=== PATIENT | female | born 1975 | race African-American/Black ===

== ENCOUNTER 2016-07-22 09:00 | Emergency (ER) | payer SELFPAY ==
[2016-07-22] MEDS ORDERED: KETOROLAC TROMETH 30 MG/ML VIAL IM ONE (09:07)
--- NOTE | 2016-07-22 09:10 | EDPRACDOC ---
- General Information Stated Complaint: ABD/BACK PAIN, BITE Time Seen by Provider: 07/22/16 09:03 Information Source: Patient Mode Of Arrival: Car Home Medications: Home Medications Cephalexin Monohydrate [Keflex] 500 mg PO Q6H #20 cap 05/17/16 Promethazine Dextromethorphan [Phenergan DM] 5 ml PO Q6 PRN #120 ml 05/17/16 Hydrocodone/Acetaminophen [Lortab 5-325 mg Tablet] 1 each PO Q4H PRN #15 tablet 07/22/16 Ketorolac Tromethamine [Toradol] 10 mg PO Q6H PRN #20 tab 07/22/16 Prednisone [Deltasone, Orasone] 1 tabs PO BID #18 tab 07/22/16 Allergies/Adverse Reactions: Allergies Allergy/AdvReac Type Severity Reaction Status Date / Time No Known Allergies Allergy Verified 07/22/16 09:17 - History of Present Illness Onset: FEW DAYS HPI: PT SAID THAT SHE HAS PAIN IN HER BACK AND GOING DOWN HER RIGHT LEG INTO HER RIGHT KNEE. THE PT SAID THAT SHE ALSO HAS RUQ PAIN AND SUPRAPUBIC PAIN. Pain Location: Reports: Bilateral, Lumbar Pain Radiates To: Reports: Thigh Pain Caused By: Reports: Spontaneous Circumstances: Reports: Other Relevant History: Reports: None Currently ?: No Pain Severity: Reports: Mild Pain Quality: Reports: Burning Worsened By: Reports: Movement Associated Signs and Symptoms: Reports: Abdominal Pain ED Past Medical History - History Reviewed No Past Medical History: Yes Patient has no past medical history - Patient Medical History Psychological History: Denies: Depression Surgical History: Reports: Other (BTL) - Social Medical History Smoking Status: Never smoker ETOH: None Substance Abuse: None Lives In: Home EDM Review of Systems - Review of Systems ROS Negative Except as Marked: Yes All systems reviewed and were negative except as marked Gastrointestinal: Pain Musculoskeletal: Back - Physical Exam Constitutional: Alert (Awake), No apparent distress Oriented to: Time, Person, Place Last recorded Vital Signs: Oxygen Pulse Oxygen Saturation O2 Device Oxygen Flow Rate Fraction of Inspired Oxygen ( FIO2) - HEENT Head: Normal ( normocephalic) Eye Exam: Normal (PERRL, EOMI, Sclera white) Oropharynx: Normal (Pharynx:Moist without exudate,Gums-no swelling) ENT EAC: Normal TMJ: Normal Nose: No Symptoms Reported (septum midline) Neck: Normal (FROM, trachea at midline) - Respiratory/Cardiovascular Respiratory: Normal - CTA (BBS clear to auscultation without adventitious sounds ) Cardiovascular: Normal (RRR without murmur, gallop or rub) - GI Auscultation: Normal (NABS) Palpation: Normal (Soft,No rebound or guarding, non distended) Tenderness: Mild, RUQ, Suprapubic Hernandez's Sign: Negative - Musculoskeletal Back: Normal (Non-Tender) Extremities: Normal (Normal tone, Pulses 2+ No cyanosis or edema, FROM) - Integumentary Skin: Normal, Warm, Dry Lymphatics: Normal (no adenopathy) - Neurologic Memory Impaired: Normal Motor Function: Normal (Normal tone, Pulses 2+ No cyanosis or edema, FROM) Cranial Nerve: Normal (CN II-X11 intact sensation, strength 5/5) Cerebellar: Normal Mood Description: Normal Thought: Coherent Perception: Normal - Results 07/22/16 09:20 07/22/16 09:20 Decision Time to Discharge: 09:54 - Departure Yes I personally saw and evaluated the patient. Disposition: Home Condition: Fair Final Diagnosis: Lumbar radiculopathy, Hyperglycemia Instructions: Lumbar Radiculopathy (ED) Education/Counseling Given To: Patient Education/Counseling Given Regarding: Diagnosis, Treatment, Follow Up Referrals: None,No Provider [Primary Care Provider] - One Week Geoffrey Nolen MD [Staff Physician] - One Week Prescriptions: Hydrocodone/Acetaminophen [Lortab 5-325 mg Tablet] 1 each PO Q4H PRN #15 tablet PRN Reason: Pain Ketorolac Tromethamine [Toradol] 10 mg PO Q6H PRN #20 tab PRN Reason: Pain Prednisone [Deltasone, Orasone] 1 tabs PO BID #18 tab Additional Instructions: recheck bs with pcp in 1 week
[2016-07-22 09:11] VITALS: TEMP 98.4; BMI 39.8
[2016-07-22 09:40] LABS: AUTOMATED BASOPHIL 0.5 % (0-2); AUTOMATED EOSINOPHIL 2.1 % (0-5); AUTOMATED LYMPH 31.7 % (17-44); AUTOMATED MONOCYTE 7.4 % (3-10); AUTOMATED NEUTROPHIL 58.3 % (45-76); MPV 8.9 fL (7.4-10.4)
[2016-07-22 09:45] LABS: RBC/URINE 0-2 (0-5); WBC/URINE 0-2 (0-5)
[2016-07-22 09:46] LABS: URINE OCCULT BLOOD NEG (NEG/TRACE)
[2016-07-22 09:47] LABS: LEUKOCYTES/URINE TRACE (NEGATIVE); NITRITE/URINE NEG (NEGATIVE)
[2016-07-22 09:51] LABS: BLOOD UREA NITROGEN 13 MG/DL (7-17); CALCIUM 8.9 MG/DL (8.4-10.2); CALCULATED OSMOLALITY 271 MOs/Kg (270-290); CHLORIDE 104 mEq/L (98-107); GLUCOSE 160 MG/DL (70-99); SODIUM LEVEL 139 mEq/L (137-146); TOTAL PROTEIN 7.8 G/DL (6.3-8.2)
[2016-07-22] MEDS ORDERED: HYDROCORTISONE 30 GM TUBE TOP ONE (09:58)
[2016-07-22 10:09] VITALS: BP 134/63; PULSE 62
== END 2016-07-22 10:08 | disposition home or self-care (01) ==
LOC: ED 09:00
DX: M54.16 Radiculopathy, lumbar region (principal); R73.9 Hyperglycemia, unspecified
CPT/HCPCS: 36415; 80053; 81001; 81025; 83690; 85025; 96372; 99283; J1885; J3490

== ENCOUNTER 2016-07-29 00:40 | Emergency (ER) | payer SELFPAY ==
[2016-07-29 00:40] VITALS: BMI 39.8
[2016-07-29 01:17] VITALS: TEMP 98.4
[2016-07-29] MEDS ORDERED: SODIUM CHLORIDE 0.9% 3 ML FLUSH FLUSH PRN (01:27)
[2016-07-29] MEDS ORDERED: NS 1,000 ML IV ONE ×2 (01:27)
--- NOTE | 2016-07-29 01:36 | EDPRACDOC ---
- General Information Chief Complaint: Bleeding (Rectal &/or other) Stated Complaint: VAGINAL BLEEDING Time Seen by Provider: 07/29/16 01:21 Information Source: Patient Mode of Arrival: Car Home Medications: Home Medications Cephalexin Monohydrate [Keflex] 500 mg PO Q6H #20 cap 05/17/16 Promethazine Dextromethorphan [Phenergan DM] 5 ml PO Q6 PRN #120 ml 05/17/16 Hydrocodone/Acetaminophen [Lortab 5-325 mg Tablet] 1 each PO Q4H PRN #15 tablet 07/22/16 Ketorolac Tromethamine [Toradol] 10 mg PO Q6H PRN #20 tab 07/22/16 Prednisone [Deltasone, Orasone] 1 tabs PO BID #18 tab 07/22/16 Ondansetron [Zofran Odt] 4 mg PO Q6H #14 tab.rapdis 07/29/16 Oxycodone HCl/Acetaminophen [Percocet 5-325 mg Tablet] 1 - 2 tab PO Q4-6H PRN # 30 tab 07/29/16 Allergies/Adverse Reactions: Allergies Allergy/AdvReac Type Severity Reaction Status Date / Time No Known Allergies Allergy Verified 07/22/16 09:17 - History of Present Illness Onset: yesterday HPI: PT C/O VAGINAL BLEEDING AND SPOTTING FOR 3 DAYS WITH LOWER ABD PAIN. DENIES N/V/ D OR URINARY SYMPTOMS AT THIS TIME. PT STATES SHE THOUGHT IT WAS HER MENSTRUAL CYCLE BUT THAT ISNT TIL THE END OF THE MONTH. Description: Reports: Spontaneous Location: Reports: External Vagina, Internal Vagina Relevant History: Reports: None Control Method: Reports: BTL Pain Severity: Moderate Vaginal Bleeding Description: Reports: Bright Red Associated Signs & Symptoms: Reports: Vaginal Bleeding, Burning ED Past Medical History - History Reviewed Yes Nurses notes reviewed and agree except as marked Travel Outside of [place] in the Last 3 Months?: No No Past Medical History: Yes Patient has no past medical history - Patient Medical History Psychological History: Denies: Depression Systemic History: Denies: Cancer Surgical History: Reports: Other (BTL). Denies: Hysterectomy, Tonsillectomy/ Adnoidectomy - Social Medical History Smoking Status: Never smoker ETOH: None Substance Abuse: None Lives With: Other Lives In: Home EDM Review of Systems - Review of Systems ROS Negative Except as Marked: Yes All systems reviewed and were negative except as marked Constitutional: No Symptoms Reported. negative: Fever, Chills, Weakness, Fatigue, Loss of Appetite Eyes: No Symptoms Reported. negative: Redness, Blurred Vision, Double Vision, Discharge, Pain, Light Sensitive, Photophobia Ears: No Symptoms Reported. negative: Pain, Hearing Loss, Drainage, Ear Pulling Throat: No Symptoms Reported. negative: Pain, Swelling Nose: No Symptoms Reported. negative: Congestion, Bleeding, Discharge, Injection, Swelling, Deformity, Ecchymosis, Tender, Abrasion, Laceration Mouth: No Symptoms Reported. negative: Pain, Drooling Respiratory: No Symptoms Reported. negative: Cough, Brassy Cough, Barky Cough, Shortness of Breath, Wheezing, Hemoptysis Cardiovascular: No Symptoms Reported. negative: Chest Pain, Palpitations, Syncope, Edema, Orthopnea, PND, Skin Mottling, Cyanosis Gastrointestinal: Pain (SUPRAPUBIC). negative: Constipation, Diarrhea, Formula Intolerance, Melena, Nausea, Vomiting Genitourinary: Vaginal Bleeding, Other (VAGINAL BURNING). negative: Bleeding, Dysuria, Discharge, Frequency, Hematuria, , Testicular Pain Neurological: No Symptoms Reported. negative: Headache, Dizziness, Seizure, Numbness, Weakness, Speech Difficulty, Gait Difficulty Musculoskeletal: No Symptoms Reported. negative: Neck, Chestwall, Ribs, Back, Shoulder, Arm, Elbow, Forearm, Wrist, Hand, Pelvis, Hip, Femur, Knee, Leg, Ankle , Foot Integumentary: No Symptoms Reported. negative: Itching, Rash, Bruising, Wound Allergic/Immunologic: No Symptoms Reported. negative: Hives, Itching Hematologic: No Symptoms Reported. negative: Lymphadenopathy, Easy Bruising, Easy Bleeding Endocrine: No Symptoms Reported. negative: Weight Gain, Weight Loss Psychiatric: No Symptoms Reported. negative: Anxiety, Depression, Hallucinations, Insomnia, Suicidal - Physical Exam Constitutional: Alert (Awake), No apparent distress Oriented to: Time, Person, Place Last recorded Vital Signs: Last Vital Signs Temp 98.4 F 07/29/16 01:06 Pulse 72 07/29/16 01:06 Resp 20 07/29/16 01:06 BP 172/79 07/29/16 01:06 Pulse Ox 99 07/29/16 01:06 Oxygen Pulse Oxygen Saturation 99 O2 Device Room Air Oxygen Flow Rate Fraction of Inspired Oxygen ( FIO2) - HEENT Head: Normal ( normocephalic) Eye Exam: Normal (PERRL, EOMI, Sclera white) Oropharynx: Normal (Pharynx:Moist without exudate,Gums-no swelling) Tympanic Membrane: Normal ENT EAC: Normal TMJ: Normal Nose: No Symptoms Reported (septum midline) Neck: Normal (FROM, trachea at midline) - Respiratory/Cardiovascular Respiratory: Normal - CTA (BBS clear to auscultation without adventitious sounds ) Cardiovascular: Normal (RRR without murmur, gallop or rub) - GI Auscultation: Normal (NABS) Palpation: Normal (Soft,No rebound or guarding, non distended) Tenderness: Mild, Suprapubic Hernandez's Sign: Negative - Bladder: Tender - Musculoskeletal Back: Normal (Non-Tender) Extremities: Normal (Normal tone, Pulses 2+ No cyanosis or edema, FROM) - Integumentary Skin: Normal, Warm, Dry Lymphatics: Normal (no adenopathy) - Neurologic Memory Impaired: Normal Motor Function: Normal (Normal tone, Pulses 2+ No cyanosis or edema, FROM) Cranial Nerve: Normal (CN II-X11 intact sensation, strength 5/5) Cerebellar: Normal Mood Description: Normal Perception: Normal - Differential Diagnosis Bacterial Vaginitis, Cervicitis, PID, Trichomonas Vaginitis, UTI, Vaginitis, Other (UTERINE FIBROIDS, DYSFUNCTIONAL UTERINE BLEEDING. ) - Results 07/29/16 01:58 07/29/16 01:58 Decision Time to Discharge: 03:38 - Departure Disposition: Home Condition: Stable Final Diagnosis: Trichomoniasis of vagina Instructions: Trichomoniasis (ED) Education/Counseling Given To: Patient Education/Counseling Given Regarding: Diagnosis, Treatment, Prognosis, Follow Up Referrals: None,No Provider [Primary Care Provider] - One Week Prescriptions: Ondansetron [Zofran Odt] 4 mg PO Q6H #14 tab.rapdis Oxycodone HCl/Acetaminophen [Percocet 5-325 mg Tablet] 1 - 2 tab PO Q4-6H PRN # 30 tab PRN Reason: Pain
[2016-07-29 02:08] LABS: LEUKOCYTES/URINE NEG (NEGATIVE); NITRITE/URINE NEG (NEGATIVE); RBC/URINE 0-2 (0-5); URINE OCCULT BLOOD 2+ (NEG/TRACE); WBC/URINE 0-2 (0-5)
[2016-07-29 02:10] LABS: AUTOMATED EOSINOPHIL 2.2 % (0-5); AUTOMATED LYMPH 34.6 % (17-44); AUTOMATED MONOCYTE 6.2 % (3-10); MPV 8.9 fL (7.4-10.4)
[2016-07-29 02:20] LABS: BLOOD UREA NITROGEN 16 MG/DL (7-17); CALCIUM 9.2 MG/DL (8.4-10.2); CALCULATED OSMOLALITY 272 MOs/Kg (270-290); CHLORIDE 102 mEq/L (98-107); GLUCOSE 139 MG/DL (70-99); SODIUM LEVEL 140 mEq/L (137-146); TOTAL PROTEIN 7.1 G/DL (6.3-8.2)
[2016-07-29] MEDS ORDERED: MORPHINE 4 MG/ML INJECTION IV ONE (03:36)
[2016-07-29] MEDS ORDERED: ONDANSETRON HCL 4 MG/2 ML VIAL IV ONE (03:36)
[2016-07-29] MEDS ORDERED: METRONIDAZOLE 500 MG TAB PO ONE (03:37)
[2016-07-29] MEDS ORDERED: OXYCODONE HCL 5 MG TABLET PO ONE (03:37)
[2016-07-29] MEDS ORDERED: ONDANSETRON HCL 4 MG ODT TAB PO ONE (03:37)
[2016-07-29 04:19] VITALS: BP 135/63; PULSE 76
[2016-07-29] MEDS ORDERED: SODIUM CHLORIDE 0.9% 3 ML FLUSH FLUSH SCH (06:00)
[2016-07-31 12:39] LABS: CHLAMY BY NUCLEIC ACID AMP Negative (Negative)
[2016-07-31 14:20] LABS: GC BY NUCLEIC ACID AMP Negative (Negative)
== END 2016-07-29 04:08 | disposition home or self-care (01) ==
LOC: ED 00:40
DX: A59.01 Trichomonal vulvovaginitis (principal)
CPT/HCPCS: 36415; 80053; 81001; 81025; 83880; 85025; 87210; 87220; 87491; 87591; 96360; 96361; 99284; J3490